=== PATIENT | female | born 1985 | race Caucasian/White ===

== ENCOUNTER 2017-05-10 17:13 | Emergency (ER) | payer SELFPAY ==
[~2017-05-10] VITALS: Ht 165.1 cm; Wt 57.6 kg
[2017-05-10 20:33] VITALS: BP 118/70
== END 2017-05-10 18:00 | disposition home or self-care (01) ==
LOC: FSED 17:13
DX: R06.02 Shortness of breath (principal); F41.8 Other specified anxiety disorders; F17.200 Nicotine dependence, unspecified, uncomplicated; T43.205A Adverse effect of unspecified antidepressants, initial encounter
CPT/HCPCS: 99281